=== PATIENT | female | born 1985 | race Asian ===

== ENCOUNTER 2018-01-01 10:37 | Emergency (ER) | payer BC ==
[~2018-01-01] VITALS: Ht 160 cm; Wt 59.0 kg
[2018-01-01 12:22] LABS: BASO # 0.1 x10^3/uL (0.0-0.2); BASO % 1 % (0-3); EOS # 0.2 x10^3/uL (0.0-0.7); EOS % 3 % (0-3); HEMOGLOBIN 13.4 g/dL (12.0-15.5); LYMPH % 25 % (24-48); MEAN CORPUSCULAR HEMOGLOBIN 28 pg (25-35); MEAN CORPUSCULAR HGB CONC 33 g/dL (31-37); MEAN CORPUSCULAR VOLUME 86 fL (79-100); MONO # 0.4 x10^3/uL (0.0-1.1); MONO % 5 % (0-9); NEUT # 5.2 x10^3uL (1.8-7.7); NEUT % 66 % (31-73); PLATELET COUNT 175 x10^3/uL (140-400); RED BLOOD COUNT 4.76 x10^6/uL (3.50-5.40); RED CELL DISTRIBUTION WIDTH 12.1 % (11.5-14.5); WHITE BLOOD COUNT 7.9 x10^3/uL (4.0-11.0)
[2018-01-01 12:29] LABS: CALCIUM 8.7 mg/dL (8.5-10.1); CREATININE 0.7 mg/dL (0.6-1.0); GFR 95.8; POTASSIUM 3.4 mmol/L (3.5-5.1)
[2018-01-01 12:34] LABS: ALBUMIN 3.8 g/dL (3.4-5.0); TOTAL BILIRUBIN 0.8 mg/dL (0.2-1.0); TOTAL PROTEIN 7.6 g/dL (6.4-8.2)
[2018-01-01 12:50] LABS: BILIRUBIN,URINE NEGATIVE (NEG); CLARITY,URINE CLEAR; COLOR,URINE YELLOW; NITRITE,URINE NEGATIVE (NEG); PROTEIN,URINE NEGATIVE (NEG-TRACE)
[2018-01-01 12:59] LABS: SQUAMOUS EPITHELIAL CELL,UR MANY /LPF
[2018-01-01 13:00] LABS: BACTERIA,URINE MODERATE /HPF (0-FEW); YEAST,URINE PRESENT /HPF
--- NOTE | 2018-01-01 13:17 | PHYS DOC ---
Past Medical History Past Medical History: No Pertinent History Past Surgical History: No Surgical History Alcohol Use: None Drug Use: None Adult General Chief Complaint Chief Complaint: ABDOMINAL PAIN [facility] HPI Patient is a 32 year old female who presents with abdominal pain 3 days as in the right lower and right mid quadrant. Patient states she also had some vaginal bleeding but she did not have a period last month. Patient states that she's had a burn chills. Patient states that she feels like her abdomen is distended. Patient states the right lower pain also respiratory right back. She says that she does have burning with urination and that the vaginal bleeding is scant. Patient states that's been a day's and she's had a bowel movement and feels like she needs to go but cannot. Patient states that the pain yesterday came and go but today is continuous. Patient rates her pain a 7 out of 10 and states it is a cramping pain patient states she has taken no medication and takes no medications daily. Patient denies nausea or vomiting with this that she has lost her appetite. Patient has no known drug allergies and has no medical history. Patient does speak [place] interpreter and translator is used. Her temp is 93 , 81 heart rate, 131/70, 100% on room air, 16 respirations. Review of Systems Review of Systems Constitutional: Denies fever or chills [] Eyes: Denies change in visual acuity, redness, or eye pain [] HENT: Denies nasal congestion or sore throat [] Respiratory: Denies cough or shortness of breath [] Cardiovascular: No additional information not addressed in HPI [] GI: RLQ and Mid abdominal pain. Loss of appetite. Denies nausea, vomiting, bloody stools or diarrhea [] : Dysuria. Vaginal bleeding. Denies hematuria [] Musculoskeletal: Denies back pain or joint pain [] Integument: Denies rash or skin lesions [] Neurologic: Denies headache, focal weakness or sensory changes [] All other systems were reviewed and found to be within normal limits, except as documented in this note. Physical Exam Physical Exam Constitutional: Well developed, well nourished, no acute distress, non-toxic appearance. [] HENT: Normocephalic, atraumatic, bilateral external ears normal, oropharynx moist, no oral exudates, nose normal. [] Eyes: PERRLA, EOMI, conjunctiva normal, no discharge. [] Neck: Normal range of motion, no tenderness, supple, no stridor. [] Cardiovascular:Heart rate regular rhythm, no murmur [] Lungs & Thorax: Bilateral breath sounds clear to auscultation [] Abdomen: Bowel sounds normal, soft, Low mid abdominal tenderness, no masses, no pulsatile masses. [] Skin: Warm, dry, no erythema, no rash. [] Back: No tenderness, no CVA tenderness. [] Extremities: No tenderness, no cyanosis, no clubbing, ROM intact, no edema. [] Neurologic: Alert and oriented X 3, normal motor function, normal sensory function, no focal deficits noted. [] Psychologic: Affect normal, judgement normal, mood normal. [] Current Patient Data Vital Signs Vital Signs Date Time Temp Pulse Resp B/P (MAP) Pulse Ox O2 Delivery O2 Flow Rate FiO2 01/01/18 11:38 98.3 94 20 131/70 (90) Room Air 98.3 Lab Values Laboratory Tests Test 01/01/18 12:10 01/01/18 12:35 01/01/18 13:34 White Blood Count 7.9 x10^3/uL (4.0-11.0) Red Blood Count 4.76 x10^6/uL (3.50-5.40) Hemoglobin 13.4 g/dL (12.0-15.5) Hematocrit 41.0 % (36.0-47.0) Mean Corpuscular Volume 86 fL (79-100) Mean Corpuscular Hemoglobin 28 pg (25-35) Mean Corpuscular Hemoglobin Concent 33 g/dL (31-37) Red Cell Distribution Width 12.1 % (11.5-14.5) Platelet Count 175 x10^3/uL (140-400) Neutrophils (%) (Auto) 66 % (31-73) Lymphocytes (%) (Auto) 25 % (24-48) Monocytes (%) (Auto) 5 % (0-9) Eosinophils (%) (Auto) 3 % (0-3) Basophils (%) (Auto) 1 % (0-3) Neutrophils # (Auto) 5.2 x10^3uL (1.8-7.7) Lymphocytes # (Auto) 2.0 x10^3/uL (1.0-4.8) Monocytes # (Auto) 0.4 x10^3/uL (0.0-1.1) Eosinophils # (Auto) 0.2 x10^3/uL (0.0-0.7) Basophils # (Auto) 0.1 x10^3/uL (0.0-0.2) Maternal Serum HCG Beta Subunit 49652 mIU/mL (0-5) H Sodium Level 138 mmol/L (136-145) Potassium Level 3.4 mmol/L (3.5-5.1) L Chloride Level 103 mmol/L (98-107) Carbon Dioxide Level 22 mmol/L (21-32) Anion Gap 13 (6-14) Blood Urea Nitrogen 8 mg/dL (7-20) Creatinine 0.7 mg/dL (0.6-1.0) Estimated GFR (Cockcroft-Gault) 95.8 BUN/Creatinine Ratio 11 (6-20) Glucose Level 91 mg/dL (70-99) Calcium Level 8.7 mg/dL (8.5-10.1) Total Bilirubin 0.8 mg/dL (0.2-1.0) Aspartate Amino Transferase (AST) 13 U/L (15-37) L Alanine Aminotransferase (ALT) 18 U/L (14-59) Alkaline Phosphatase 47 U/L (46-116) Total Protein 7.6 g/dL (6.4-8.2) Albumin 3.8 g/dL (3.4-5.0) Albumin/Globulin Ratio 1.0 (1.0-1.7) Urine Collection Type Unknown Urine Color Yellow Urine Clarity Clear Urine pH 6.0 Urine Specific [place] 1.015 Urine Protein Negative mg/dL (NEG-TRACE) Urine Glucose (UA) Negative mg/dL (NEG) Urine Ketones (Stick) Trace mg/dL (NEG) Urine Blood Moderate (NEG) Urine Nitrite Negative (NEG) Urine Bilirubin Negative (NEG) Urine Urobilinogen Dipstick 1.0 mg/dL (0.2 mg/dL) Urine Leukocyte Esterase Small (NEG) Urine RBC 1-2 /HPF (0-2) Urine WBC 5-10 /HPF (0-4) Urine Squamous Epithelial Cells Many /LPF Urine Bacteria Moderate /HPF (0-FEW) Urine Mucus Mod /LPF Urine Yeast Present /HPF POC Urine HCG, Qualitative Hcg positive (Negative) Laboratory Tests 01/01/18 12:10 Laboratory Tests 01/01/18 12:10 EKG EKG [] Radiology/Procedures Radiology/Procedures [] Impressions: [facility] [address] [place] [address] IMAGING REPORT Signed PATIENT: NEDRA TADEO ACCOUNT: [id number] : 1985 LOCATION: ER AGE: 32 SEX: F EXAM STATUS: REG ER ORD. PHYSICIAN: RENA FERRELL APRN REASON: Vaginal bleeding, positive test PROCEDURE: OB <14 WKS W/TV OB ultrasound study less than 14 weeks with transvaginal exam. Clinical indications: Vaginal spotting. Positive test. Transabdominal sonography: Uterus is anteverted in position. The longitudinal and AP and transverse dimensions of the uterus are 9.6 cm and 5.4 cm and 6.1 cm respectively. There is a gestational sac within the fundal portion of the uterus. No pole or heartbeat is seen. Therefore, transvaginal sonography will be performed. No adnexal masses are seen. The right ovary measures 1.4 cm and 2.3 cm and 1.5 cm in size and is normal. Color Doppler flow is seen within the right ovary. The left ovary is not visualized. Transvaginal sonography: Within the gestational sac, a small yolk sac is identified. There is a single pole. [place]-rump length is 0.27 cm which corresponds to a gestational age of 5 weeks and 6 days. heart rate is 153 bpm. Amniotic sac and fluid volume appears normal given gestational age. No extra chorionic hemorrhage is seen. Placental location cannot be determined at this early stage. The left ovary is visualized and measures 2.4 cm and 3.5 cm and 2.0 cm in size and is normal. No adnexal mass or free fluid is evident. IMPRESSION: Single IUP with gestational age of 5 weeks and 6 days corresponds to an EDC of August 28, 2018. Electronically signed by: Ming Solomon MD (01/01/2018 3:24 PM) [place] [id number] DICTATED and SIGNED BY: MING SOLOMON MD DATE: 01/01/18 1520 Course & Med Decision Making Course & Med Decision Making Patient is a 32 year old female who presents with abdominal pain 3 days as in the right lower and right mid quadrant. Patient states she also had some vaginal bleeding but she did not have a period last month. Patient states that she's had a burn chills. Patient states that she feels like her abdomen is distended. Patient states the right lower pain also respiratory right back. She says that she does have burning with urination and that the vaginal bleeding is scant. Patient states that's been a day's and she's had a bowel movement and feels like she needs to go but cannot. Patient states that the pain yesterday came and go but today is continuous. Patient rates her pain a 7 out of 10 and states it is a cramping pain patient states she has taken no medication and takes no medications daily. Patient denies nausea or vomiting with this that she has lost her appetite. Patient has no known drug allergies and has no medical history. Patient does speak [place] interpreter and translator is used. Her temp is 93 , 81 heart rate, 131/70, 100% on room air, 16 respirations. Abdomen is slightly tender with with palpation in low mid abdomen to the right abdomen. Denies CVA tenderness. Denies vaginal discharge. Alert and oriented. Neurologically intact. Abdomen is soft and there are no masses felt. Lungs are clear to auscultation. Heart rate is regular without murmur. Patient denies any numbness , tingling, shortness of air, chest pain, headache, dizziness. positive. Ultrasound shows Single IUP with gestational age of 5 weeks and 6 days corresponds to an EDC of August 28, 2018. heart rate is 153. Beta hCG serum is 32,133. Patient is to follow-up with her primary care doctor or her OB doctor. I will refer her to a OB doctor from [place] if she would like to see that doctor. She is stable and in no distress. [] Dragon Disclaimer Dragon Disclaimer This electronic medical record was generated, in whole or in part, using a voice recognition dictation system. Departure Departure Impression: Primary Impression: Vaginal bleeding in Additional Impression: UTI (urinary tract infection) Disposition: HOME, SELF-CARE Condition: STABLE Referrals: NO PCP (PCP) CELENA WERNER MD Patient Instructions: ABCs of , - Urinary Tract Infection, Vaginal Bleeding During , First Trimester Additional Instructions: Follow up with a OB doctor as soon as possible. Return if abdominal pain increases and your begin bleeding heavily. Scripts Nitrofurantoin Monohyd/M-Cryst (MACROBID 100 MG CAPSULE) 100 Mg Capsule 1 CAP PO BID for 7 Days, #14 CAP Prov: RENA FERRELL APRN 01/01/18 Problem Qualifiers Additional Impression: UTI (urinary tract infection) Urinary tract infection type: site unspecified Hematuria presence: with hematuria Qualified Codes: N39.0 - Urinary tract infection, site not specified ; R31.9 - Hematuria, unspecified RENA FERRELL APRN Jan 01, 2018 13:17
--- NOTE | 2018-01-01 15:27 | RAD ---
OB ultrasound study less than 14 weeks with transvaginal exam. Clinical indications: Vaginal spotting. Positive test. Transabdominal sonography: Uterus is anteverted in position. The longitudinal and AP and transverse dimensions of the uterus are 9.6 cm and 5.4 cm and 6.1 cm respectively. There is a gestational sac within the fundal portion of the uterus. No pole or heartbeat is seen. Therefore, transvaginal sonography will be performed. No adnexal masses are seen. The right ovary measures 1.4 cm and 2.3 cm and 1.5 cm in size and is normal. Color Doppler flow is seen within the right ovary. The left ovary is not visualized. Transvaginal sonography: Within the gestational sac, a small yolk sac is identified. There is a single pole. [place]-rump length is 0.27 cm which corresponds to a gestational age of 5 weeks and 6 days. heart rate is 153 bpm. Amniotic sac and fluid volume appears normal given gestational age. No extra chorionic hemorrhage is seen. Placental location cannot be determined at this early stage. The left ovary is visualized and measures 2.4 cm and 3.5 cm and 2.0 cm in size and is normal. No adnexal mass or free fluid is evident. IMPRESSION: Single IUP with gestational age of 5 weeks and 6 days corresponds to an EDC of August 28, 2018. Electronically signed by: Clyde Solomon MD (01/01/2018 3:24 PM) [id number]
[2018-01-01] MEDS ORDERED: NITR100C62 PO (15:39)
[2018-01-01 16:20] VITALS: BP 117/62
== END 2018-01-01 16:20 | disposition home or self-care (01) ==
LOC: ER 10:37
DX: O23.41 Unspecified infection of urinary tract in pregnancy, first trimester (principal); O20.8 Other hemorrhage in early pregnancy; R10.31 Right lower quadrant pain; R63.0 Anorexia; Z3A.01 Less than 8 weeks gestation of pregnancy
CPT/HCPCS: 36415; 76801; 76817; 80053; 81001; 81025; 84702; 85025; 87086; 99285-25

== ENCOUNTER → 2019-05-22 | Outpatient (CLI) | payer BC, OTHER ==
[2018-08-17 15:10] VITALS: BP 118/74
[~2019-05-22] MED LIST: HYDR-3164 PO; NAPR-514 PO; NITR100C62 PO
--- NOTE | 2019-05-22 12:34 | RAD ---
Examination: PREG MORE THAN OR EQ TO 14 WKS History: Unsure of dates Comparison/Correlation: None Findings: OB ultrasound exam was performed. Single living intrauterine gestation is present with heart rate of 135 beats per minutes. movement is visualized. Anterior wall location of the placenta is present. Placenta is grade 1. Breech lie noted. Three-vessel cord insertion is identified. Fluid is present in the urinary bladder. Stomach and kidneys are noted. Spine and brain noted. Amniotic fluid of normal quantity is evident. Biparietal diameter 6.2 cm corresponding 25 weeks 1 day. Circumferences 23.12 cm corresponding to 25 weeks 1 day. Abdominal circumference is 21.7 cm corresponding to 26 weeks 1 day. Femur length is 4.72 cm corresponding to 25 weeks 5 days. Head circumference to abdominal circumference ratio is 1.07. Estimated weight is 861 g. Gestational age by ultrasound is 25 weeks 4 days. EDC by ultrasound of 08/31/2019. Impression: Single viable breech lie intrauterine gestation with average ultrasound age of 25 weeks 4 days. Electronically signed by: Gregor Dia MD (05/22/2019 12:31 PM) [id number]
== END | disposition home or self-care (01) ==
LOC: US 11:43
PROVIDERS: ATTEND Obstetrics & Gynecology
DX: O26.842 Uterine size-date discrepancy, second trimester (principal); Z3A.25 25 weeks gestation of pregnancy
CPT/HCPCS: 76805

== ENCOUNTER 2019-08-20 15:52 | Inpatient (IN) | payer BC, OTHER ==
[~2019-08-20] VITALS: Ht 152.4 cm; Wt 78.0 kg
[2019-08-20] MEDS ORDERED: TERBUTALINE 1 MG/ML VIAL. SQ PRN (16:00)
[2019-08-20] MEDS ORDERED: IV RINGERS,LACTATED 1000ML 1,000 ML IV PRN (16:00)
[2019-08-20] MEDS ORDERED: LIDOCAINE 1% PF 30 ML VIAL. INJ PRN (16:00)
[2019-08-20] MEDS ORDERED: ONDANSETRON PF 4 MG/2 ML VIAL. IVP PRN (16:00)
[2019-08-20] MEDS ORDERED: fentaNYL PF VIAL 100 MCG/2 ML VIAL IVP PRN (16:00)
[2019-08-20] MEDS ORDERED: 0.9 % SODIUM CHLORIDE 10 ML DISP.SYRIN. IV PRN ×2 (16:00→17:00)
[2019-08-20] MEDS ORDERED: OXYTOCIN 30 UNIT/500 ML PREMIX 500 ML IV PRN ×3 (16:00→17:00)
[2019-08-20] MEDS ORDERED: IBUPROFEN 400 MG TABLET. PO PRN (16:00)
[2019-08-20] MEDS ORDERED: BUTORPHANOL 2 MG/ML VIAL. IVP PRN (16:00)
[2019-08-20 16:20] LABS: BILIRUBIN,URINE NEGATIVE (NEG); CLARITY,URINE CLEAR; COLOR,URINE YELLOW; NITRITE,URINE NEGATIVE (NEG); PH,URINE 6.5 (<5.0-8.0); PROTEIN,URINE NEGATIVE (NEG-TRACE)
[2019-08-20 16:24] LABS: BACTERIA,URINE MANY /HPF (0-FEW); SQUAMOUS EPITHELIAL CELL,UR MANY /LPF
[2019-08-20 16:25] LABS: RBC,URINE 0 /HPF (0-2); YEAST,URINE PRESENT /HPF
--- NOTE | 2019-08-20 16:58 | PDOC1 ---
OB - History Hx of Present Care: Good Care Ultrasounds: Normal mid trimester US Obstetrical Complications: None Medical Complications: Other (possible Covid positive) Past Family/Social History * Past Medical, Surgical, Family and Obstetric Histories reviewed from chart. Blood Type: O+ RPR/VDRL: Negative GBS Status: Negative HBsAG: Negative OB - Chief Complaint & HPI Date of Admission: Date of Admission: Aug 20, 2019 at 15:52 Chief Complaint/History : 4 Para: 3 EGA: 38 Reason for admission: active labor, other (possible Covid positive 6/3) Admission Nurse Assessment Rev: No OB - Admission Exam Physical Exam HEENT: Normal Heart: Regular Rate Lungs: Clear, Equal Abdomen: Gravid, Non tender, Soft Extremities: Edema Reflexes: Normal Cervical Dilatation: 7cm Effacement: 100% Station: 0 Membranes: Intact Heart Rate: Normal Accelerations: Accelerations Present Decelerations: No decelerations Contractions on Admission: < 5 Minutes Apart Intensity: Firm Text A: 38 wks IUP Active labor Possible Covid positive 6/3: will need to confirm with public health department P: Admit labor management. ZAINAB SANCHEZ Jr, MD Aug 20, 2019 16:57
[2019-08-20] MEDS ORDERED: MMR per PROTOCOL. MC PRN (17:00)
[2019-08-20] MEDS ORDERED: DOCUSATE SODIUM 100 MG CAPSULE. PO PRN (17:00)
[2019-08-20] MEDS ORDERED: TDaP (Adacel) per PROTOCOL. MC PRN (17:00)
[2019-08-20] MEDS ORDERED: MAG HYDROX/ALUMINUM HYD/SIMETH 30 ML ORAL.SUSP PO PRN (17:00)
[2019-08-20] MEDS ORDERED: ZOLPIDEM 5 MG TABLET. PO PRN (17:00)
[2019-08-20] MEDS ORDERED: MAGNESIUM HYDROXIDE 2,400 MG/30 ML ORAL.SUSP. PO PRN (17:00)
[2019-08-20] MEDS ORDERED: diphenhydrAMINE HCL 25 MG CAPSULE PO PRN (17:00)
[2019-08-20] MEDS ORDERED: HYDROCORTISONE 1% TOPICAL OINTMENT 30GM TUBE. TP PRN (17:00)
[2019-08-20] MEDS ORDERED: SIMETHICONE 80 MG TAB.CHEW PO PRN (17:00)
[2019-08-20] MEDS ORDERED: BENZOCAINE 20% TOPICAL AEROSOL SPRAY 57GM CAN. TP PRN (17:00)
[2019-08-20] MEDS ORDERED: PHENYLEPH/MINERAL OIL/PETROLAT RECTAL OINTMENT TUBE. RC PRN (17:00)
[2019-08-20] MEDS ORDERED: ACETAMINOPHEN 325 MG TABLET. PO PRN (17:00)
--- NOTE | 2019-08-20 17:00 | PDOC ---
VAGINAL DELIVERY DATE DATE: 08/20/19 TIME: 16:58 : 4 Para: 4 EGA: 38 VAGINAL DELIVERY: VTX VACCUM ASSISTED: No PLACENTA: Spontaneous 9/9 SEX: Female WEIGHT Weight [ 7 lbs. 5 oz] Nuchal Cord: No Amniotic Fluid: Clear PAIN: Natural EPISIOTOMY: No EXTENSION: Yes (1st degree midline laceration) REPAIRED WITH 2-0 vicryl EBL 300 ml COMPLICATIONS none CONDITION pt. stable Signs of Intrauterine Infectio: None Shoulder Dystocia: No ZAINAB SANCHEZ Jr, MD Aug 20, 2019 17:00
--- NOTE | 2019-08-20 17:00 | PDOC2 ---
Plan Delivery Note for Infant Asked to attend delivery due to delivery of shopping news for patient of Dr. Carballo. delivered vaginally. Bulb syringe used. Cord clamped and brought to preheated radiant warmer. alert, active, and crying with good tone, getting pinker. Some audible oral secretions, bulb syringe used again-scant oral secretions. Dr. Carballo here shortly after delivery of . Overall exam appears WNL for term female . Barclay slate noted over buttocks. Apgars 9-9 (only off for color). Mom is considered a PUI, all proper PPE worn. left in care of nursery RNRuth. Infant to stay in room with mom as long as stays well. NICOLE Reeves APRN [facility] Aug 20, 2019 17:00
[2019-08-20 17:38] LABS: BASO % 0 % (0-3); EOS # 0.1 x10^3/uL (0.0-0.7); EOS % 1 % (0-3); HEMATOCRIT 35.6 % (36.0-47.0); HEMOGLOBIN 11.4 g/dL (12.0-15.5); LYMPH % 25 % (24-48); MEAN CORPUSCULAR HEMOGLOBIN 26 pg (25-35); MEAN CORPUSCULAR HGB CONC 32 g/dL (31-37); MEAN CORPUSCULAR VOLUME 80 fL (79-100); MONO # 0.8 x10^3/uL (0.0-1.1); MONO % 7 % (0-9); NEUT # 7.8 x10^3/uL (1.8-7.7); NEUT % 67 % (31-73); PLATELET COUNT 211 x10^3/uL (140-400); RED BLOOD COUNT 4.46 x10^6/uL (3.50-5.40); RED CELL DISTRIBUTION WIDTH 14.7 % (11.5-14.5); WHITE BLOOD COUNT 11.7 x10^3/uL (4.0-11.0)
[2019-08-20] MEDS: IBUPROFEN 400 MG TABLET. PO PRN (17:45)
[2019-08-20] MEDS: oxyCODONE/APAP 5/325 1 TAB TABLET PO PRN (20:20)
--- NOTE | 2019-08-20 20:20 | NUR ---
Did not scan 2020 [facility], was unable to get the scanner to work in the isolation room.
[2019-08-20 20:56] VITALS: BP 120/63
[2019-08-21] MEDS: oxyCODONE/APAP 5/325 1 TAB TABLET PO PRN ×2 (00:46→10:04)
[2019-08-21 00:53] VITALS: BP 94/52
[2019-08-21 05:02] VITALS: BP 109/59
[2019-08-21] MEDS: IBUPROFEN 400 MG TABLET. PO PRN ×2 (05:07→17:26)
[2019-08-21 05:08] LABS: BASO % 0 % (0-3); EOS # 0.1 x10^3/uL (0.0-0.7); EOS % 1 % (0-3); HEMATOCRIT 31.1 % (36.0-47.0); HEMOGLOBIN 9.9 g/dL (12.0-15.5); LYMPH # 2.3 x10^3/uL (1.0-4.8); LYMPH % 20 % (24-48); MEAN CORPUSCULAR HEMOGLOBIN 26 pg (25-35); MEAN CORPUSCULAR HGB CONC 32 g/dL (31-37); MEAN CORPUSCULAR VOLUME 80 fL (79-100); MONO # 0.9 x10^3/uL (0.0-1.1); MONO % 8 % (0-9); NEUT # 8.1 x10^3/uL (1.8-7.7); NEUT % 71 % (31-73); PLATELET COUNT 190 x10^3/uL (140-400); RED CELL DISTRIBUTION WIDTH 14.8 % (11.5-14.5); WHITE BLOOD COUNT 11.5 x10^3/uL (4.0-11.0)
[2019-08-21] MEDS: FERROUS SULFATE 325 MG TABLET. PO SCH ×2 (08:00→17:00)
--- NOTE | 2019-08-21 08:45 | NUR ---
Call placed to [facility] and message left requesting a call back regarding questionable covid positive results.
[2019-08-21] MEDS: MULTIVITAMIN with MINERAL TABLET. PO SCH (10:04)
[2019-08-21 11:45] VITALS: BP 119/63
--- NOTE | 2019-08-21 12:30 | PDOC ---
OB Progress Note Date of Service 08/21/19 Time of Evaluation 1230 Notes Pt. feeling well. No complaints. Lab Laboratory Tests Test 08/20/19 16:00 08/20/19 16:15 08/21/19 03:50 White Blood Count 11.7 x10^3/uL (4.0-11.0) 11.5 x10^3/uL (4.0-11.0) Red Blood Count 4.46 x10^6/uL (3.50-5.40) 3.90 x10^6/uL (3.50-5.40) Hemoglobin 11.4 g/dL (12.0-15.5) 9.9 g/dL (12.0-15.5) Hematocrit 35.6 % (36.0-47.0) 31.1 % (36.0-47.0) Mean Corpuscular Volume 80 fL (79-100) 80 fL (79-100) Mean Corpuscular Hemoglobin 26 pg (25-35) 26 pg (25-35) Mean Corpuscular Hemoglobin Concent 32 g/dL (31-37) 32 g/dL (31-37) Red Cell Distribution Width 14.7 % (11.5-14.5) 14.8 % (11.5-14.5) Platelet Count 211 x10^3/uL (140-400) 190 x10^3/uL (140-400) Neutrophils (%) (Auto) 67 % (31-73) 71 % (31-73) Lymphocytes (%) (Auto) 25 % (24-48) 20 % (24-48) Monocytes (%) (Auto) 7 % (0-9) 8 % (0-9) Eosinophils (%) (Auto) 1 % (0-3) 1 % (0-3) Basophils (%) (Auto) 0 % (0-3) 0 % (0-3) Neutrophils # (Auto) 7.8 x10^3/uL (1.8-7.7) 8.1 x10^3/uL (1.8-7.7) Lymphocytes # (Auto) 3.0 x10^3/uL (1.0-4.8) 2.3 x10^3/uL (1.0-4.8) Monocytes # (Auto) 0.8 x10^3/uL (0.0-1.1) 0.9 x10^3/uL (0.0-1.1) Eosinophils # (Auto) 0.1 x10^3/uL (0.0-0.7) 0.1 x10^3/uL (0.0-0.7) Basophils # (Auto) 0.0 x10^3/uL (0.0-0.2) 0.0 x10^3/uL (0.0-0.2) Urine Collection Type Unknown Urine Color Yellow Urine Clarity Clear Urine pH 6.5 (<5.0-8.0) Urine Specific [place] 1.015 (1.000-1.030) Urine Protein Negative mg/dL (NEG-TRACE) Urine Glucose (UA) Negative mg/dL (NEG) Urine Ketones (Stick) 40 mg/dL (NEG) Urine Blood Negative (NEG) Urine Nitrite Negative (NEG) Urine Bilirubin Negative (NEG) Urine Urobilinogen Dipstick 1.0 mg/dL (0.2 mg/dL) Urine Leukocyte Esterase Moderate (NEG) Urine RBC 0 /HPF (0-2) Urine WBC 1-4 /HPF (0-4) Urine Squamous Epithelial Cells Many /LPF Urine Bacteria Many /HPF (0-FEW) Urine Mucus Slight /LPF Urine Yeast Present /HPF Treponema pallidum Antibody Nonreactive (Nonreactive) Coronavirus (COVID-19)(PCR) Negative (NEGATIVE) Laboratory Tests Test 08/20/19 16:00 08/20/19 16:15 08/21/19 03:50 White Blood Count 11.7 x10^3/uL (4.0-11.0) 11.5 x10^3/uL (4.0-11.0) Red Blood Count 4.46 x10^6/uL (3.50-5.40) 3.90 x10^6/uL (3.50-5.40) Hemoglobin 11.4 g/dL (12.0-15.5) 9.9 g/dL (12.0-15.5) Hematocrit 35.6 % (36.0-47.0) 31.1 % (36.0-47.0) Mean Corpuscular Volume 80 fL (79-100) 80 fL (79-100) Mean Corpuscular Hemoglobin 26 pg (25-35) 26 pg (25-35) Mean Corpuscular Hemoglobin Concent 32 g/dL (31-37) 32 g/dL (31-37) Red Cell Distribution Width 14.7 % (11.5-14.5) 14.8 % (11.5-14.5) Platelet Count 211 x10^3/uL (140-400) 190 x10^3/uL (140-400) Neutrophils (%) (Auto) 67 % (31-73) 71 % (31-73) Lymphocytes (%) (Auto) 25 % (24-48) 20 % (24-48) Monocytes (%) (Auto) 7 % (0-9) 8 % (0-9) Eosinophils (%) (Auto) 1 % (0-3) 1 % (0-3) Basophils (%) (Auto) 0 % (0-3) 0 % (0-3) Neutrophils # (Auto) 7.8 x10^3/uL (1.8-7.7) 8.1 x10^3/uL (1.8-7.7) Lymphocytes # (Auto) 3.0 x10^3/uL (1.0-4.8) 2.3 x10^3/uL (1.0-4.8) Monocytes # (Auto) 0.8 x10^3/uL (0.0-1.1) 0.9 x10^3/uL (0.0-1.1) Eosinophils # (Auto) 0.1 x10^3/uL (0.0-0.7) 0.1 x10^3/uL (0.0-0.7) Basophils # (Auto) 0.0 x10^3/uL (0.0-0.2) 0.0 x10^3/uL (0.0-0.2) Urine Collection Type Unknown Urine Color Yellow Urine Clarity Clear Urine pH 6.5 (<5.0-8.0) Urine Specific [place] 1.015 (1.000-1.030) Urine Protein Negative mg/dL (NEG-TRACE) Urine Glucose (UA) Negative mg/dL (NEG) Urine Ketones (Stick) 40 mg/dL (NEG) Urine Blood Negative (NEG) Urine Nitrite Negative (NEG) Urine Bilirubin Negative (NEG) Urine Urobilinogen Dipstick 1.0 mg/dL (0.2 mg/dL) Urine Leukocyte Esterase Moderate (NEG) Urine RBC 0 /HPF (0-2) Urine WBC 1-4 /HPF (0-4) Urine Squamous Epithelial Cells Many /LPF Urine Bacteria Many /HPF (0-FEW) Urine Mucus Slight /LPF Urine Yeast Present /HPF Treponema pallidum Antibody Nonreactive (Nonreactive) Coronavirus (COVID-19)(PCR) Negative (NEGATIVE) Medications Current Medications Sodium Chloride (Normal Saline Flush) 3 ml QSHIFT PRN IV AFTER MEDS AND BLOOD DRAWS; Start 08/20/19 at 16:00 Ringer's Solution 1,000 ml @ 125 mls/hr Q8H PRN IV PER PROTOCOL; Start 08/20/19 at 16:00 Butorphanol Tartrate (Stadol) 2 mg PRN Q1HR PRN IVP Severe labor pain; Start 08/20/19 at 16:00 Fentanyl Citrate (Fentanyl 2ml Vial) 100 mcg PRN Q1HR PRN IVP Labor pain; Start 08/20/19 at 16:00 Ondansetron HCl (Zofran) 4 mg PRN Q4HRS PRN IVP NAUSEA/VOMITING; Start 08/20/19 at 16:00 Terbutaline Sulfate (Brethine) 0.25 mg 1X PRN PRN SQ SEE COMMENTS; Start 08/20/19 at 16:00; Stop 08/21/19 at 15:59 Lidocaine HCl (Xylocaine 1% Pf 30ml Vial) 30 ml 1X PRN PRN INJ SEE COMMENTS; Start 08/20/19 at 16:00; Stop 08/22/19 at 15:59 Oxytocin/Sodium Chloride 500 ml @ 0 mls/hr CONT PRN IV SEE I/O RECORD; Start 08/20/19 at 16:00 Oxytocin/Sodium Chloride 500 ml @ 0 mls/hr CONT PRN PRN IV Post delivery bleeding Last administered on 08/20/19at 16:29; Start 08/20/19 at 16:00 Ibuprofen (Motrin) 800 mg PRN Q6HRS PRN PO INFLAMMATION; Start 08/20/19 at 16: 00; Stop 08/20/19 at 17:01; Status DC Sodium Chloride (Normal Saline Flush) 10 ml QSHIFT PRN IV AFTER MEDS AND BLOOD DRAWS; Start 08/20/19 at 17:00 Oxytocin/Sodium Chloride 500 ml @ 62.5 mls/hr CONT PRN IV SEE I/O RECORD; Start 08/20/19 at 17:00; Stop 08/21/19 at 00:59; Status DC Acetaminophen (Tylenol) 650 mg PRN Q6HRS PRN PO MILD PAIN / TEMP > 100.3'F; Start 08/20/19 at 17:00 Ibuprofen (Motrin) 800 mg PRN Q8HRS PRN PO INFLAMMATION/PAIN PREVENTION Last administered on 08/21/19at 05:07; Start 08/20/19 at 17:00 Docusate Sodium (Colace) 100 mg PRN BID PRN PO HARD STOOL; Start 08/20/19 at 17:00 Magnesium Hydroxide (Milk Of Magnesia) 2,400 mg PRN DAILY PRN PO CONSTIPATION; Start 08/20/19 at 17:00 Al Hydroxide/Mg Hydroxide (Mylanta Plus Xs) 30 ml PRN Q4HRS PRN PO HEARTBURN / GAS; Start 08/20/19 at 17:00 Simethicone (Gas-X) 80 mg PRN AFTMEALHC PRN PO GAS / BLOATING; Start 08/20/19 at 17:00 Diphenhydramine HCl (Benadryl) 25 mg PRN Q6HRS PRN PO ITCHING; Start 08/20/19 at 17:00 Benzocaine (Americaine) 1 spray PRN QID PRN TP TOPICAL PAIN; Start 08/20/19 at 17:00 Phenyleph/Shark Oil/Min Oil/Petrol (Preparation H) 1 jalen PRN QID PRN RC RECTAL PAIN; Start 08/20/19 at 17:00 Hydrocortisone (Cortaid) 1 jalen PRN QID PRN TP PERINEAL PAIN; Start 08/20/19 at 17:00 Ferrous Sulfate (Feosol) 325 mg BIDWMEALS PO ; Start 08/21/19 at 08:00 Zolpidem Tartrate (Ambien) 5 mg PRN QHS PRN PO INSOMNIA, MAY REPEAT X1; Start 08/20/19 at 17:00 Info (Do NOT chart on this placeholder) 1 ea 1X PRN PRN MC SEE COMMENTS; Start 08/20/19 at 17:00 Info (Do NOT chart on this placeholder) 1 ea 1X PRN PRN MC SEE COMMENTS; Start 08/20/19 at 17:00 Oxycodone/ Acetaminophen (Percocet 5/325) 2 tab PRN Q4HRS PRN PO MODERATE PAIN, SEVERE PAIN Last administered on 08/21/19at 10:04; Start 08/20/19 at 17:00 Multivitamins (Thera M Plus) 1 tab DAILY PO Last administered on 08/21/19at 10:04; Start 08/21/19 at 09:00 Active Scripts Active [place] 5-325 Tablet (Acetaminophen/Hydrocodone Bitart) 1 Each Tablet 1 Tab PO PRN Q6HRS PRN Naproxen 500 Mg Tablet 500 Mg PO BID Macrobid 100 Mg Capsule (Nitrofurantoin Monohyd/M-Cryst) 100 Mg Capsule 1 Cap PO BID 7 Days Exam Abd: soft, non tender, fundus firm Assessment PPD#1 s/p Plan of Care: Continue current Tx, Mgmt ZAINAB SANCHEZ Jr, MD Aug 21, 2019 12:30
--- NOTE | 2019-08-21 12:40 | NUR ---
Call received from [facility] dept, 2 phone numbers given for slime Alfaro and Jany and messages left for both to call us back regarding covid results.
--- NOTE | 2019-08-21 12:50 | NUR ---
Dr. Carballo here and reported that covid test done here at hospital was negative. Awaiting a call back from bib dept.
--- NOTE | 2019-08-21 16:00 | NUR ---
Lisbet FORD called and said she would check with Sheyla Grayson and let us know if the pt could be taken out of isolation.
--- NOTE | 2019-08-21 16:00 | NUR ---
Ruth FORD [facility] and was told they did not have any positive results but that she would check with her turn supervisor and confirm. A call was placed to Lisbet to notify her.
--- NOTE | 2019-08-21 16:20 | NUR ---
Lisbet called back and notified us that the pt could be taken out of isolation.
--- NOTE | 2019-08-21 17:05 | NUR ---
Nursing Note: Call returned from Nicky King from [facility]. [facility] according to their database called Nicko, patient Taisha Torres : 81 has not been tested for COVID-19 in the [facility]. Darrius Tidwell RN
[2019-08-21 18:39] VITALS: BP 119/64
[2019-08-21 20:00] VITALS: BP 111/64
[2019-08-22 02:00] VITALS: BP 114/70
[2019-08-22] MEDS: IBUPROFEN 400 MG TABLET. PO PRN ×2 (02:52→10:07)
[2019-08-22] MEDS: FERROUS SULFATE 325 MG TABLET. PO SCH ×2 (08:00→17:00)
[2019-08-22] MEDS ORDERED: MEASLES, MUMPS & RUBELLA VACC 0.5 ML VIAL. VAX SQ ONE (09:00)
[2019-08-22] MEDS: MULTIVITAMIN with MINERAL TABLET. PO SCH (10:07)
[2019-08-22 10:15] VITALS: BP 111/64
--- NOTE | 2019-08-22 17:15 | PDOC3 ---
OB DISCHARGE SUMMARY DATE OF ADMISSION: 08/20/19 DATE OF DISCHARGE: 08/22/19 REASON FOR ADMISSION: Onset of labor INTRAPARTUM PROCEDURES: Spontanous Vag Deliv DISCHARGE DIAGNOSIS: Term Delivered DISCHARGE INFORMATION: Activity (ad britney), Diet (regular), Instructions (pelvic rest x 6 wks) HOSPITAL COURSE TErm gestation delivered vaginally without complications. ZAINAB SANCHEZ Jr, MD Aug 22, 2019 17:15
[2019-08-22] MEDS ORDERED: IBUP-1027 PO (17:20)
--- NOTE | 2019-08-22 17:21 | DISCH ---
DISCHARGE INSTRUCTIONS Condition on Discharge Condition on Discharge: Stable Activity After Discharge Activity Instructions for Disc: Activity as tolerated Lifting Instructions after Dis: No heavy lifting, No pulling or pushing, Do not lift >10 pounds Driving Instructions after Dis: Do not drive today Weight Bearing Status after Di: As tolerated Diet after Discharge Diet after Discharge: Regular Diet Texture: Regular Contacting the DRNaheed after DC Call your doctor for: Concerns you may have Follow-Up Follow up with: Dr. Carballo in 4 wks Treatment/Equipment after DC Adaptive Equipment Issued: None ZAINAB ACRBALLO Jr, MD Aug 22, 2019 17:21
[2019-08-22 17:45] VITALS: BP 129/64
--- NOTE | 2019-08-22 18:30 | NUR ---
Discharge and follow up instructions reviewed with pt and her via the [facility] [employer] [facility]. Pt denied any questions or complaints at time of discharge. Walked pt out of the hospital with her and by her side.
== END 2019-08-22 18:30 | disposition home or self-care (01) | DRG 807 ==
LOC: 3 SO LND 15:52 → OBSVTOIN 16:14
PROVIDERS: ADMIT Obstetrics & Gynecology; ATTEND Obstetrics & Gynecology
PROC: 10E0XZZ Delivery of Products of Conception, External Approach (ICD-10-PCS; principal; 2019-08-20)
PROC: 0HQ9XZZ Repair Perineum Skin, External Approach (ICD-10-PCS; 2019-08-20)
DX: O70.0 First degree perineal laceration during delivery (principal); Z37.0 Single live birth; Z3A.38 38 weeks gestation of pregnancy; Z20.828 Contact with and (suspected) exposure to other viral communicable diseases
CPT/HCPCS: 36415; 81001; 85025; 86592; 86850; 86900; 86901; 87086; 90471; 90707; G0379; J2590; G0378; U0003-CS

== ENCOUNTER → 2021-01-07 | Outpatient (CLI) | payer BC, OTHER ==
[~2021-01-07] MED LIST changes: +IBUP-1027 PO
--- NOTE | 2021-01-07 17:58 | RAD ---
INDICATION: Reason: RIGHT ACUTE PAIN IN FEMALE PELVIS / Spl. Instructions: / History: COMPARISON: None. TECHNIQUE: Grayscale and color ultrasound images uterus and adnexa. Transvaginal and transabdominal images are obtained. FINDINGS: Uterus: 92 x 63 x 54 mm. 12 mm endometrial stripe Right Ovary: 30 x 22 x 15 mm. Left Ovary: 36 x 19 x 19 mm. Vascular flow identified to bilateral ovaries. Small fluid in the cul-de-sac. Intrauterine device is seen within the lower uterine segment within the endometrium. The distal tip o f the intrauterine device is approximately 2.5 cm from the fundal endometrium with the proximal tip l ocated near the internal cervical os region. There is a small amount of fluid within the cervix. This location of the intrauterine device may be secondary to flexion of the uterus with angulation. IMPRESSION: * Vascular flow seen to the ovaries with multiple ovarian follicles bilaterally. * Intrauterine device is seen within the lower uterine segment with the proximal tip located near th e internal cervical os. The distal tip of the intrauterine device is located in a somewhat lower than typical location and approximately 2.5 cm from the distal aspect of the endometrium. Additionally th e distal aspect of the intrauterine device either extends into the myometrium or indents the myometri um adjacent to the endometrial stripe. * There are some echogenic foci seen within the myometrium adjacent to the intrauterine device. Coul d be from calcifications or air. Electronically signed by: Zoltan Rivera MD (01/07/2021 5:55 PM) [id number]
== END ==
LOC: US 15:30
PROVIDERS: ATTEND Obstetrics & Gynecology
DX: N83.02 Follicular cyst of left ovary (principal); N83.01 Follicular cyst of right ovary; Z97.5 Presence of (intrauterine) contraceptive device
CPT/HCPCS: 76830; 76856